=== PATIENT | male | born 1970 | race Caucasian/White ===

== ENCOUNTER 2022-10-06 17:10 | Emergency (ER) | payer OTHER, SELFPAY ==
[2022-10-06 17:15] VITALS: BP 124/78; PULSE 84; RESP 18; TEMP 36.4; O2SAT 97; BMI 25.8
--- NOTE | 2022-10-06 17:30 | ECG_ITS ---
[facility] Test Date: 2022-10-06 Pat Name: Percy Wayne Department: Room: - Gender: Male [employer]: : 1970 Requested By: [id number] Order Number: [id number] Reading MD: KRISTA MUHAMMAD Measurements Intervals [place] Rate: 87 P: 49 WV: 196 QRS: 78 QRSD: 84 T: 29 QT: 346 QTc: 390 Interpretive Statements 1100 Sinus rhythm 9150 abnormal ECG No previous ECG available for comparison Electronically Signed On 10-07-2022 7:20:50 EDT by KRISTA MUHAMMAD
--- NOTE | 2022-10-06 17:31 | ED_ITS ---
HPI - Chest Pain General Chief Complaint: Chest Pain Stated Complaint: CHEST PAIN Time Seen by Provider: 10/06/22 17:16 Source: patient Mode of arrival: walk-in Limitations: no limitations History of Present Illness HPI narrative: patient is a 52-year-old male with no major medical problems who presents to the Emergency Room for pain in the right upper chest/right lateral chest that began last night. He denies any mechanism of injury or trauma to his significant other states that he does a lot of lifting and twisting at work. He is a regular smoker. He denies any significant history of cardiopulmonary abnormalities, he does not take any medications for hypertension or high cholesterol. He has not had any fevers, vomiting or diarrhea. He denies any peripheral edema. He states his pain feels like a cramp and it seems to be getting better today. he states pain is worse with deep breathing and movement. Risk Factors Coronary artery disease risk factors: smoking history Related Data Previous Rx's Medication Instructions Recorded ketorolac 10 mg tablet 10 mg PO TID PRN pain #10 tabs 10/06/22 methocarbamol 750 mg tablet 750 mg PO TID PRN pain #20 tabs 10/06/22 Allergies Allergy/AdvReac Type Severity Reaction Status Date / Time No Known Drug Allergies Allergy Verified 10/06/22 17:18 Review of Systems ROS Constitutional Denies: fever or chills Ears, nose, mouth, and throat Denies: throat pain Cardiovascular Reports: chest pain Respiratory Reports: cough; Denies: shortness of breath Gastrointestinal Denies: nausea or vomiting Musculoskeletal Denies: back pain Integumentary/Breast Denies: rash Psychiatric Denies: anxiety Exam Narrative Exam Narrative: Gen.: Awake, alert, in no distress Head: Normocephalic, atraumatic ENT: Moist mucous membranes Respiratory: No respiratory distress, lungs clear bilaterally, pain with inspiration in the right chest Cardio: Regular rate and rhythm Extremities: Moves extremities equally, no injuries noted Psych: Normal mood and affect Neuro: No focal neuro deficit Skin: Warm, dry, intact Constitutional Vital Signs, click to edit/add: Last Vital Signs Temp 97.5 F L 10/06/22 17:15 Pulse 84 10/06/22 17:15 Resp 18 10/06/22 17:15 BP 124/78 H 10/06/22 17:15 Pulse Ox 97 10/06/22 17:15 O2 Del Method Room Air 10/06/22 17:15 Course Vital Signs Vital signs: Vital Signs Temperature 97.5 F L 10/06/22 17:15 Pulse Rate 84 10/06/22 17:15 Respiratory Rate 18 10/06/22 17:15 Blood Pressure 124/78 H 10/06/22 17:15 Pulse Oximetry 97 10/06/22 17:15 Oxygen Delivery Method Room Air 10/06/22 17:15 Temperature 97.5 F L 10/06/22 17:15 Pulse Rate 84 10/06/22 17:15 Respiratory Rate 18 10/06/22 17:15 Blood Pressure 124/78 H 10/06/22 17:15 Pulse Oximetry 97 10/06/22 17:15 Oxygen Delivery Method Room Air 10/06/22 17:15 MDM - Chest Pain MDM Narrative Medical decision making narrative: patient was treated with IV Toradol, IV Norflex. Lab studies including d-dimer and troponin are within normal limits. Patient with a heart score of two, pain has been present since last night. chest x-ray shows no evidence of acute cardiopulmonary changes and the patient is discharged home with symptomatic medication and muscle relaxants and NSAIDs for chest wall pain. Work note provided. Return to the Emergency Room if symptoms change or worsen. Medical Records Data Attestation: I reviewed the patient's medical records. Lab Data Attestation: I reviewed the patient's lab results. Labs: Lab Results 10/06/22 Range/Units 17:38 WBC 9.6 (4.0-11.0) 10^3/uL RBC 4.78 (4.70-6.10) 10^6/uL Hgb 14.6 (14.0-18.0) g/dL Hct 44.7 (42.0-54.0) % MCV 93.5 (80.0-94.0) fL MCH 30.5 (25.9-34.0) pg MCHC 32.7 (29.9-35.2) g/dL RDW 13.1 (11.0-15.0) % Plt Count 213 (150-450) 10^3/uL MPV 11.4 (9.5-13.5) fL Neut % (Auto) 59.4 (43.0-75.0) % Lymph % (Auto) 28.4 (20.5-60.0) % [place] % (Auto) 9.3 (1.7-12.0) % Eos % (Auto) 1.9 (0.9-7.0) % Baso % (Auto) 0.6 (0.2-2.0) % Neut # (Auto) 5.7 (1.4-6.5) 10^3/uL Lymph # (Auto) 2.7 (1.2-3.8) 10^3/uL [place] # (Auto) 0.9 H (0.3-0.8) 10^3/uL Eos # (Auto) 0.2 (0.0-0.7) 10^3/uL Baso # (Auto) 0.1 (0.0-0.1) 10^3/uL Abs Immat Gran (auto) 0.04 H (0.00-0.03) 10^3/uL Imm/Tot Granulo (auto) 0.4 (0.0-0.5) % PT 10.7 (9.0-11.6) sec INR 1.01 APTT 27.4 (22.3-36.2) sec D-Dimer <0.19 (<=0.59) mg/L FEU Sodium 140 (136-145) mmol/L Potassium 4.2 (3.5-5.1) mmol/L Chloride 106 (98-107) mmol/L Carbon Dioxide 25.5 (21.0-32.0) mmol/L Anion Gap 12.7 BUN 14.0 (7.0-18.0) mg/dL Creatinine 0.71 (0.70-1.30) mg/dL Est GFR ( Amer) >60 (>=60) Est GFR (Non-Af Amer) >60 (>=60) BUN/Creatinine Ratio 19.7 Glucose 189 H (74-106) mg/dL Calcium 8.9 (8.5-10.1) mg/dL Total Bilirubin 0.2 (0.2-1.0) mg/dL AST 11 L (15-37) U/L ALT 18 (16-63) U/L Alkaline Phosphatase 109 (46-116) U/L Troponin I High Sens 6.8 (4.0-76.1) pg/mL Total Protein 6.8 (6.4-8.2) g/dL Albumin 3.5 (3.4-5.0) g/dL Globulin 3.3 g/dL Albumin/Globulin Ratio 1.1 Imaging Data Chest x-ray: Attestation: I have reviewed the pertinent imaging results. Radiologist's impression: Procedure: XR chest 1V EXAM: XR chest 1V at 1804 hours HISTORY: Chest pain COMPARISON: None. TECHNIQUE: AP upright portable chest x-ray FINDINGS: The heart is not enlarged and the vasculature is not distended. No acute infiltrate, effusion or pneumothorax is identified. The osseous structures are grossly intact. IMPRESSION: No acute infiltrate or evidence of cardiac decompensation. Direct comparison with a previous study is recommended to verify stability of these findings. Electronically authenticated by: JOZEF MCGOVERN Date: 10/06/2022 19:06 ECG Data Attestation: I personally reviewed and interpreted this ECG as follows: (normal sinus rhythm at a rate of eighty-[address] elevation or ectopy. EKG reviewed by attending physician) ECG interpretation date: 10/06/22 ECG interpretation time: 17:50 Heart Score History: Slightly/Non-Suspicious ECG: Normal Age: >45-<65 years Risk Factors: 1 or 2 Risk Factors Troponin: <Normal Limit Total Heart Score Recommendations & Risks:: 2 Discharge Plan Discharge Chief Complaint: Chest Pain Clinical Impression: Acute chest wall pain Patient Disposition: Home, Self-Care Time of Disposition Decision: 19:11 Condition: Good Prescriptions / Home Meds: New ketorolac 10 mg tablet 10 mg PO TID PRN (Reason: pain) Qty: 10 0RF methocarbamol 750 mg tablet 750 mg PO TID PRN (Reason: pain) Qty: 20 0RF Instructions: Chest Wall Pain (ED) Stand Alone Forms: Portal Instructions Referrals: Physician,Non-Staff, MD [Primary Care Provider] - 1 week
[2022-10-06 17:45] LABS: Basophils Absolute Auto 0.1 10^3/uL (0.0-0.1); Basophils Percent Auto 0.6 % (0.2-2.0); Eosinophils Absolute Auto 0.2 10^3/uL (0.0-0.7); Eosinophils Percent Auto 1.9 % (0.9-7.0); Hematocrit 44.7 % (42.0-54.0); Hemoglobin 14.6 g/dL (14.0-18.0); Immature Granulocytes Abs Auto 0.04 10^3/uL (0.00-0.03); Immature Granulocytes Pct Auto 0.4 % (0.0-0.5); Lymphocytes Absolute Auto 2.7 10^3/uL (1.2-3.8); Lymphocytes Percent Auto 28.4 % (20.5-60.0); Mean Corpuscular HGB Conc 32.7 g/dL (29.9-35.2); Mean Corpuscular Hemoglobin 30.5 pg (25.9-34.0); Mean Corpuscular Volume 93.5 fL (80.0-94.0); Mean Platelet Volume 11.4 fL (9.5-13.5); Monocytes Absolute Auto 0.9 10^3/uL (0.3-0.8); Monocytes Percent Auto 9.3 % (1.7-12.0); Neutrophils Absolute Auto 5.7 10^3/uL (1.4-6.5); Neutrophils Percent Auto 59.4 % (43.0-75.0); Platelet Count 213 10^3/uL (150-450); Red Blood Count 4.78 10^6/uL (4.70-6.10); Red Cell Distribution Width 13.1 % (11.0-15.0); White Blood Count 9.6 10^3/uL (4.0-11.0)
[2022-10-06] MEDS: ORPHENADRINE 60 MG/ 2 ML VIAL IV (17:53)
[2022-10-06] MEDS: KETOROLAC TROMETHAMINE 30 MG/ML VIAL IVP (17:53)
[2022-10-06 18:01] LABS: INR 1.01; Partial Thromboplastin Time 27.4 sec (22.3-36.2); Prothrombin Time 10.7 sec (9.0-11.6)
[2022-10-06 18:02] LABS: D Dimer <0.19 mg/L FEU (<=0.59)
[2022-10-06 18:14] LABS: Alanine Aminotransferase 18 U/L (16-63); Albumin Globulin Ratio 1.1; Albumin Level 3.5 g/dL (3.4-5.0); Alkaline Phosphatase 109 U/L (46-116); Anion Gap 12.7; Aspartate Amino Transferase 11 U/L (15-37); BUN Creatinine Ratio 19.7; Bilirubin Total 0.2 mg/dL (0.2-1.0); Calcium 8.9 mg/dL (8.5-10.1); Carbon Dioxide 25.5 mmol/L (21.0-32.0); Chloride 106 mmol/L (98-107); Estimated GFR (African America >60 (>=60); Estimated GFR (Non-African Ame >60 (>=60); Globulin 3.3 g/dL; Glucose 189 mg/dL (74-106); Potassium 4.2 mmol/L (3.5-5.1); Sodium 140 mmol/L (136-145); Total Protein 6.8 g/dL (6.4-8.2); Troponin I High Sensitivity 6.8 pg/mL (4.0-76.1)
--- NOTE | 2022-10-06 18:18 | XR_ITS ---
The [address] [address] Patient Name: ABA LAZO MRN: [id number] date: 1970 Sex: M Assigned Patient Location: ER Current Patient Location: ER Accession/Order Number: [id number] Exam Date: 10/06/2022 16:35 Report Date: 10/06/2022 19:06 At the request of: EVONNE ALLEN Procedure: XR chest 1V EXAM: XR chest 1V at 1804 hours HISTORY: Chest pain COMPARISON: None. TECHNIQUE: AP upright portable chest x-ray FINDINGS: The heart is not enlarged and the vasculature is not distended. No acute infiltrate, effusion or pneumothorax is identified. The osseous structures are grossly intact. XR/XR chest 1V IMPRESSION: No acute infiltrate or evidence of cardiac decompensation. Direct comparison with a previous study is recommended to verify stability of these findings. Electronically authenticated by: JOZEF MCGOVERN Date: 10/06/2022 19:06
== END 2022-10-06 19:23 | disposition home or self-care (01) ==
PROVIDERS: Physician Assistant; Emergency Provider Emergency Medicine
DX: R07.89 Other chest pain (principal)
CPT/HCPCS: 36415; 71045; 80053; 84484; 85025; 85378; 85610; 85730; 93005; 96374; 96375; 99285